=== PATIENT | female | born 1960 | race Caucasian/White ===

== ENCOUNTER 2016-11-10 02:08 | Emergency (ER) | payer OTHER ==
[~2016-11-10] VITALS: Ht 172.7 cm; Wt 73.0 kg
[~2016-11-10 02:08] MED LIST: CALCIUM 500 +1 EAC4; CENTURY CARDIO1 EAC1; CLIMARA0.05 MG TD; DOXYCYCLINE HY100 MG PO; NEXIUM40 MG PO; PROMETHAZINE V240 ML PO; STERAPRED 5 MG U5 MG PO; [UNRECOGNIZED DRUG - OTHER]
[2016-11-10 03:19] LABS: HEMATOCRIT 39.4 % (36.0-46.0); MCH 30.5 PG (29.0-34.0); MCHC 33.5 G/DL (30.0-36.0); MEAN PLAT.VOLUME 10.3 uM^3 (9.5-12.4); PLATELET COUNT 282 K/uL (156-360); RBC DIS.WIDTH-CV 12.4 % (11.8-14.6); RBC DIS.WIDTH-SD 41.2 % (39-53); RED BLOOD COUNT 4.33 M/uL (3.80-5.20); WHITE BLOOD COUNT 10.7 K/uL (4.1-10.2)
[2016-11-10 03:28] LABS: CHLORIDE 105 mEq/L (99-109); POTASSIUM 4.5 mEq/L (3.7-5.4); SODIUM 142 mEq/L (136-147)
[2016-11-10 03:30] LABS: GLUCOSE 156 mg/dL (70-99)
[2016-11-10 03:31] LABS: ANION GAP 10 MEQ/L (2-14)
[2016-11-10 03:32] LABS: TOTAL BILIRUBIN 0.3 mg/dL (0.0-1.0)
[2016-11-10 03:34] LABS: ALKALINE PHOSPHATASE 81 IU/L (3-129); GFR ESTIMATE (CALCULATED) > 59 mL/min/
[2016-11-10 03:35] LABS: UREA NITROGEN (BUN) 16 mg/dL (9-23)
[2016-11-10 04:35] LABS: BILIRUBIN NEGATIVE; COLOR RED ((YELLOW)); GLUCOSE (STRIP) NEGATIVE; KETONES NEGATIVE; LEUKOCYTES TRACE; NITRITE NEGATIVE; PH, URINE 7.5 (5-8); PROTEIN (STRIP) 100; UROBILINOGEN 0.2 MG/DL (0.2-1.0)
[2016-11-10 04:36] LABS: ADD MIUA? YES; BLOOD LARGE
[2016-11-10 04:37] LABS: RED BLOOD CELLS TNTC /HPF (0-5)
[2016-11-10 04:38] LABS: UCUL ADDED? YES
[2016-11-10] MEDS ORDERED: CIPRO500 MG PO (05:00)
[2016-11-10 05:23] VITALS: BP 164/103
== END 2016-11-10 05:24 | disposition home or self-care (01) ==
LOC: EME 02:08
PROVIDERS: Emergency Medicine
DX: N30.01 Acute cystitis with hematuria (principal); Z79.890 Hormone replacement therapy
CPT/HCPCS: 74176; 80053; 81003; 85027; 87077; 87086; 87186; 99281; 99284